=== PATIENT | female | born 1975 | race Caucasian/White ===

== ENCOUNTER 2017-09-04 03:48 | Emergency (ER) | payer MEDICAID ==
[2017-09-04 03:58] VITALS: RESP 20
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
[2017-09-04 04:38] LABS: HCG,QUALITATIVE URINE NEGATIVE (NEGATIVE)
[2017-09-04 04:40] LABS: SQUAMOUS EPITHIAL 2 /hpf (0-5); URINE BACTERIA RARE (<OCC); URINE BILIRUBIN NEGATIVE (NEGATIVE); URINE BLOOD 1+ (NEGATIVE); URINE CLARITY Clear (Clear); URINE COLOR Yellow (YELLOW); URINE GLUCOSE (UA) NORMAL (Normal); URINE LEUKOCYTE ESTERASE NEG Leu/uL (Negative); URINE NITRATE NEGATIVE (NEGATIVE); URINE PROTEIN 1+ mg/dL (NEGATIVE); URINE UROBILINOGEN NORMAL mg/dL (0.2-1.0)
[2017-09-04 05:27] LABS: BARBITURATES, UR NEGATIVE (NEGATIVE); BENZODIAZEPINES, UR NEGATIVE (NEGATIVE); OPIATES, UR NEGATIVE (NEGATIVE)
[2017-09-04 05:52] VITALS: BP 125/85; PULSE 87; TEMP 97.8
[2017-09-04 06:01] VITALS: O2SAT 98
== END 2017-09-04 05:52 | disposition home or self-care (01) ==
LOC: C.ER 03:48
DX: Z04.41 Encounter for examination and observation following alleged adult rape (principal)